=== PATIENT | female | born 1980 | race Caucasian/White ===

== ENCOUNTER 2023-05-20 01:13 | Emergency (ER) | payer OTHER, SELFPAY ==
[2023-05-20 01:28] VITALS: BP 104/83
--- NOTE | 2023-05-20 01:45 | ED.GENMED ---
History of Present Illness
<THANG Jacques - Last Filed: 05/21/23 03:38>
General
Chief Complaint: Flank Pain
Source: patient
Exam Limitations: none
Time Seen by Provider: 05/20/23 01:35
Travel History
Have you had any contact with someone who has COVID-19?: No
Do you have any symptoms of coronavirus? Fever > 100 degrees, chills, cough, shortness of breath, sore throat, loss of taste or smell, muscle aches, or headache?: No
History of Present Illness
History of Present Illness:
This is a 42 year old female that comes in with c/o right lower abd pain/flank pain. States that she was awakened about 2 hours ago with right sided flank/abd pain. States that this awoke her from sleep. States that she was fine when she went to
bed. States that she took 3 Aleve before coming. States that she is nauseated and has urinary frequency. Denies any fever, chills, chest pain, SOB, vomiting, diarrhea, headache, dizziness, urinary burning.
Past History
<THANG Jacques - Last Filed: 05/21/23 03:38>
Past History
ED Past Medical History: Hypothyroidism, Psychiatric (Depression, Anxiety) and Other (iron def anemia, Tylenol overdose)
ED Past Surgical History: None
Social History
Tobacco: Non-smoker
Alcohol: None
Drug: None
Personal:
Living: with family
Review of Systems
<THANG Jacques - Last Filed: 05/21/23 03:38>
Review of Systems
All Other Systems: ROS reviewed and negative except as documented in HPI and ROS
Constitutional: Reports no symptoms; Denies fever or chills
EENT: Reports no symptoms
Respiratory: Reports no symptoms; Denies cough or trouble breathing
Cardiac: Reports no symptoms; Denies chest pain
ABD/GI: Reports abdominal pain and nausea; Denies vomiting or diarrhea
: Reports frequency and flank pain (right sided); Denies dysuria
Musculoskeletal: Reports no symptoms
Skin: Reports no symptoms
Neurological: Reports no symptoms; Denies dizzy or headache
Psychiatric: Reports no symptoms
Phy Exam
<THANG Jacques - Last Filed: 05/21/23 03:38>
General Physical Exam
General Presentation: mild distress
General age: appears stated age
General Skin: warm and dry
General Habitus: normal
General Mental: alert
General Hydration: appears well hydrated
ENT Exam
ENT Exam: TM's normal, pharynx normal and neck supple
Eye Exam
Eye Exam: EOMI
Cardiovascular Exam
Cardiovascular Exam: regular rate/rhythm, no edema, no murmur and normal peripheral pulses
Pulmonary Exam
Pulmonary Exam: lungs clear, no respiratory distress, no rales, chest non tender, no crackles, no rhonchi, no wheezing and no cough
Gastrointestinal Exam
Gastrointestinal Exam: normal bowel sounds, soft, no organomegaly, no pulsatile mass, non distended, no cva tenderness and tender (RLQ tenderness with palpation)
Musculoskeletal Exam
Musculoskeletal Exam: full ROM and no edema
Skin Exam
Skin Exam: normal color, warm/dry, no rash and no petechia
Psychiatric Exam
Psychiatric Exam: normal mood/affect
Course
<THANG Jacques - Last Filed: 05/21/23 03:38>
Orders/Labs/Results
Orders:
Orders
05/20/23 01:39
IV Insert/Care/Rem.- Treatment PRN
05/20/23 01:43
CT Abd/pel W Iv And Oral Contr Urgent
Comment:
Reason For Exam: right sided abd pain
0.9% Sodium Chloride 1000 ml [Nss] 1,000 ml IV BOLUS
HYDROmorphone [Dilaudid] 0.5 mg IV NOW STA
Iohexol [Omnipaque] See Protocol PO NOW STA
Ondansetron Injectable [Zofran] 4 mg IV NOW STA
05/20/23 01:45
Test Result ONCE
05/20/23 02:02
Complete Blood Count/With Diff Urgent
Comprehensive Metabolic Panel Urgent
HCG, Serum Qualitative Screen Urgent
Lipase Urgent
Urinalysis Reflex To Culture Urgent
Date Specimen was Collected: 05/20/23
Time Specimen was Collected: 01:51
05/20/23 04:53
Ketorolac [Toradol] 15 mg IV NOW STA
Abnormal Lab Results
05/20/23
02:02
RBC 3.42 L 10^6/uL
(4.20-5.40)
Hgb 11.1 L g/dL
(12.0-16.0)
Hct 31.0 L %
(37.0-47.0)
MCH 32.5 H pg
(27.0-31.0)
MPV 10.5 H fL
(7.4-10.4)
Glucose 104 H mg/dl
(70-99)
Total Protein 6.1 L g/dl
(6.3-8.2)
05/20/23 02:02
05/20/23 02:02
H/H slightly low. Glucose nonfasting. Total protein slightly low. Urine negative for infection or blood. HCG negative.
Vital Signs
Initial and Last Documented VS:
Initial Vital Signs
Temp Pulse Resp BP Pulse Ox
98.3 F 61 18 104/83 98
05/20/23 01:28 05/20/23 01:28 05/20/23 01:28 05/20/23 01:28 05/20/23 01:28
Last Documented Vital Signs
Temp Pulse Resp BP Pulse Ox
98.3 F 61 18 104/83 98
05/20/23 01:28 05/20/23 01:28 05/20/23 01:28 05/20/23 01:28 05/20/23 03:45
<Eugene Rosales Celso, DO - Last Filed: 05/20/23 05:00>
Orders/Labs/Results
Orders:
Orders
05/20/23 01:39
IV Insert/Care/Rem.- Treatment PRN
05/20/23 01:43
CT Abd/pel W Iv And Oral Contr Urgent
Comment:
Reason For Exam: right sided abd pain
0.9% Sodium Chloride 1000 ml [Nss] 1,000 ml IV BOLUS
HYDROmorphone [Dilaudid] 0.5 mg IV NOW STA
Iohexol [Omnipaque] See Protocol PO NOW STA
Ondansetron Injectable [Zofran] 4 mg IV NOW STA
05/20/23 01:45
Test Result ONCE
05/20/23 02:02
Complete Blood Count/With Diff Urgent
Comprehensive Metabolic Panel Urgent
HCG, Serum Qualitative Screen Urgent
Lipase Urgent
Urinalysis Reflex To Culture Urgent
Date Specimen was Collected: 05/20/23
Time Specimen was Collected: 01:51
05/20/23 04:53
Ketorolac [Toradol] 15 mg IV NOW STA
Abnormal Lab Results
05/20/23
02:02
RBC 3.42 L 10^6/uL
(4.20-5.40)
Hgb 11.1 L g/dL
(12.0-16.0)
Hct 31.0 L %
(37.0-47.0)
MCH 32.5 H pg
(27.0-31.0)
MPV 10.5 H fL
(7.4-10.4)
Glucose 104 H mg/dl
(70-99)
Total Protein 6.1 L g/dl
(6.3-8.2)
05/20/23 02:02
05/20/23 02:02
Vital Signs
Initial and Last Documented VS:
Initial Vital Signs
Temp Pulse Resp BP Pulse Ox
98.3 F 61 18 104/83 98
05/20/23 01:28 05/20/23 01:28 05/20/23 01:28 05/20/23 01:28 05/20/23 01:28
Last Documented Vital Signs
Temp Pulse Resp BP Pulse Ox
98.3 F 61 18 104/83 98
05/20/23 01:28 05/20/23 01:28 05/20/23 01:28 05/20/23 01:28 05/20/23 03:45
<THANG Jacques - Last Filed: 05/21/23 03:38>
MDM/Problems Addressed
Differential Diagnosis Includes:
Appendicitis, Renal calculus,
MDM/Problems Addressed:
This is a 42 year old female that comes in with c/o right abd pain/flank pain. States that this started about 2 hours ago and she was fine before going to bed. States that she is nauseate and her urinary frequency. States that she tried using a
heating pad but nothing was helping
Will check labs. CT abd/pelvis. Medicate for pain and give IV fluids.
Chronic conditions affecting care:
NA
Acute Exacerbation and/or Progression of Chronic Illness:
NA
<THANG Jacques - Last Filed: 05/21/23 03:38>
*Pulse Oximetry
Patient hypoxic: no
*EKG
Interpreted by ED Provider?: NA
Rate: EKG- N/A
*Customer Success Representative Interpretation
Rate: Customer Success Representative- N/A
*Critical Care Note
Total Time (30-74mins, 75-104mins- exclusive of procedures): Not Applicable
ED Attending Note
<THANG Jacques - Last Filed: 05/21/23 03:38>
-
Portions of this chart may have been created with voice recognition software.� Occasional wrong word or��sound alike� substitutions may have occurred due to the inherent limitations of voice recognition software.
<Eugene Houston DO - Last Filed: 05/20/23 05:00>
ED Attending Note
ED Attending Note:
I evaluated patient at bedside. CT imaging shows no bowel obstruction or obstructing ureteral stone, left adnexal cyst noted and appendix was not visualized. The patient does appear somewhat uncomfortable on reassessment at 5 AM however there is
no clear cause for her pain based on ED workup. Will give short course of tramadol. Will also try dose of Toradol before she leaves. Her pain seems to be equally in the lower and upper part of the right side of the abdomen.
Discharge Plan
Departure
Patient Disposition: Home (Routine Discharge)
Date of Disposition: 05/20/23
Time of Disposition: 04:54
Patient with high blood pressure during this ER visit?: Yes
Discharge Problem:
Abdominal pain
Instructions: Abdominal Pain, Adult ED, BLOOD PRESSURE
Prescriptions:
New
tramadol 50 mg tablet
50 - 100 mg PO TID PRN (Reason: Pain) Qty: 14 0RF
No Action
polyethylene glycol 3350 17 GRAMS powder in packet
17 grams PO DAILYPRN PRN (Reason: constipation) Qty: 0 0RF
levothyroxine 50 MCG tablet
50 mcg PO DAILY AT 0700 0RF
pantoprazole 40 MG tablet,delayed release (DR/EC)
40 mg PO DAILY Qty: 30 0RF
hydrocodone-acetaminophen 5-325 mg tablet
1 tab PO QID PRN (Reason: pain) Qty: 10 0RF
cyclobenzaprine 10 mg tablet
10 mg PO TID PRN (Reason: muscle spasm) Qty: 10 0RF
Referrals:
Macy Manning PA [Family Provider] -
Activity Restrictions/Additional Instructions:
The cause of your symptoms is unclear. Your white blood cell count is normal, your hemoglobin level is slightly low at 11.1. Other blood work including abdominal blood work is unremarkable. test is negative. Urinalysis shows no sign of
blood nor signs of infection. The CAT scan showed no sign of bowel obstruction, no sign of kidney stones, and no other clear cause for your pain. A 3 cm left-sided ovarian cyst was noted however the the pain is on the right side. I sent a
prescription for tramadol to your pharmacy. You could also try [id number] ibuprofen for pain as they work in different ways. Return here if worse. Follow-up your primary care to
Interventions
Interventions:
*Risk Screen - Suicide Last Done: 05/20/23 01:28
*General Assessment Last Done: 05/20/23 05:12
*Neglect/Abuse Screening Last Done: 05/20/23 05:12
ED- Fall Risk Assessment Last Done: 05/20/23 02:35
*Nursing Disposition Last Done: 05/20/23 05:12
DP-Srhiep-Qjsacgmhod Assessment Last Done: 05/20/23 02:35
ED-Female Genitourinary Assessment Last Done: 05/20/23 02:35
Discharge Date and Time
Discharge Date/Time: 05/20/23 05:13
[2023-05-20] MEDS: DILAUDID 0.5 MG IV (01:55)
[2023-05-20] MEDS: ZOFRAN 4 MG IV (01:55)
[2023-05-20] MEDS: NSS 1000 IV (01:56)
[2023-05-20] MEDS: OMNIPAQUE 50 ML PO (01:56)
[2023-05-20 02:18] LABS: % Basophils 0.6 % (0-2); % Eosinophils 2.3 % (0-6); % Immature Granulocytes 0.2 % (0-0.5); % Lymphocytes 37.9 % (20.5-51.1); % Monocytes 7.7 % (1.7-9.3); % Neutrophils 51.3 % (42.2-75.2); Absolute Eosinophils 0.1 10^3/uL (0-0.7); Absolute Monocytes 0.4 10^3/uL (0.1-0.6); Absolute Neutrophils 2.7 10^3/uL (1.4-6.5); Hemoglobin 11.1 g/dL (12.0-16.0); Mean Corp Hgb Conc. 35.8 g/dL (33.0-37.0); Mean Corpuscular Hgb 32.5 pg (27.0-31.0); Mean Corpuscular Volume 90.6 fL (81.0-99.0); Mean Platelet Volume 10.5 fL (7.4-10.4); Nucleated Red Blood Cells % 0 %; Platelet Count 191 10^3/uL (130-400); Red Blood Cell Count 3.42 10^6/uL (4.20-5.40); Red Cell Dist. Width 12.2 % (11.5-14.5); Urine Albumin Negative (Neg - Trace); Urine Bilirubin Negative (Negative); Urine Character Slightly Cloudy (Clear); Urine Color Yellow; Urine Glucose Negative (Negative); Urine Ketone Negative (Negative); Urine Leukocyte Negative (Negative); Urine Nitrite Negative (Negative); Urine Occult Blood Negative (Negative); Urine Specific Gravity 1.015 (<1.030); Urine Urobilinogen Negative (Neg - 1+); White Blood Cell Count 5.2 10^3/uL (4.8-10.8)
[2023-05-20 02:27] LABS: HCG, Serum Qualitative Screen Negative
[2023-05-20 02:32] LABS: ALT (SGPT) 19 U/L (0-35); AST (SGOT) 21 U/L (14-36); Albumin 3.9 g/dl (3.5-5.0); Alkaline Phosphatase 53 U/L (38-126); Blood Urea Nitrogen 17 mg/dl (7-17); Calcium 9.4 mg/dl (8.4-10.2); Carbon Dioxide 28 mmol/L (22-30); Chloride 107 mmol/L (98-107); Glucose 104 mg/dl (70-99); Lipase 81 U/L (23-300); Potassium 3.6 mmol/L (3.5-5.1); Sodium 139 mmol/L (135-145); Total Bilirubin 0.4 mg/dl (0.2-1.3); Total Protein 6.1 g/dl (6.3-8.2); eGFR > 60.00
[2023-05-20] MEDS: TORADOL 15 MG IV (05:00)
== END 2023-05-20 05:13 | disposition home or self-care (01) ==
LOC: EMR 01:13
PROVIDERS: Clinical Nurse Specialist Family Health; Emergency Medicine; EMERGENCY PHYSICIAN Emergency Medicine; FAMILY PHYSICIAN Family Medicine
DX: R10.31 Right lower quadrant pain (principal); R11.0 Nausea; R35.0 Frequency of micturition; E03.9 Hypothyroidism, unspecified; D50.9 Iron deficiency anemia, unspecified; F41.9 Anxiety disorder, unspecified; F32.A Depression, unspecified
CPT/HCPCS: 99285; 96375 ×2; 96374; 74177; 80053; 81003; 83690; 84703; 85025; Q9967

== ENCOUNTER → 2024-05-13 08:07 | Outpatient (REF) | payer BC, SELFPAY | LOC: WDC 08:07 | PROVIDERS: ATTENDING PHYSICIAN Obstetrics & Gynecology Gynecology; FAMILY PHYSICIAN Family Medicine | DX: Z12.31 Encounter for screening mammogram for malignant neoplasm of breast (principal) | CPT/HCPCS: 77063; 77067 ==